=== PATIENT | female | born 1955 | race Caucasian/White ===

== ENCOUNTER 2018-12-09 19:03 | Emergency (ER) | payer OTHER ==
[2018-12-09] MEDS: KETOROLAC 30 MG INJ IM (20:41)
== END 2018-12-09 21:54 | disposition home or self-care (01) ==
LOC: FTE 19:03
DX: M76.892 Other specified enthesopathies of left lower limb, excluding foot (principal)
CPT/HCPCS: 73562; 96372; 99284-25

== ENCOUNTER 2018-12-13 19:15 | Emergency (ER) | payer OTHER | END 2018-12-13 21:07 | disposition home or self-care (01) | LOC: E/R 19:15 | DX: M25.562 Pain in left knee (principal) | CPT/HCPCS: 99282; Z7502 ==